=== PATIENT | male | born 2000 | race Caucasian/White ===

== ENCOUNTER 2023-10-30 04:36 | Emergency (ER) | payer SELFPAY ==
[~2023-10-30] VITALS: Ht 170.2 cm; Wt 57.0 kg
[2023-10-30 04:51] VITALS: TEMP 97.4; O2SAT 99
[2023-10-30 06:00] VITALS: BP 131/82; PULSE 73; RESP 18
[2023-10-30] MEDS: IBUPROFEN 600MG TABLET PO ONE (06:00)
== END 2023-10-30 07:51 | disposition home or self-care (01) ==
LOC: ER 04:36
DX: M25.562 Pain in left knee (principal); R07.81 Pleurodynia; M25.551 Pain in right hip; V98.8XXA Other specified transport accidents, initial encounter; Y93.89 Activity, other specified; Y92.89 Other specified places as the place of occurrence of the external cause; Y99.8 Other external cause status
CPT/HCPCS: 71046; 73502; 73562; 99284